=== PATIENT | female | born 1970 | race Caucasian/White ===

== ENCOUNTER 2017-11-17 14:22 | Emergency (ER) | payer OTHER, SELFPAY ==
--- NOTE | 2017-11-17 14:37 | EKG ---
Test Date: 2017-11-17 Test Time: 14:21:22 Log Brander: KAMI MEASUREMENT RESULTS: Intervals: Rate: 79 WA: 142 QRSD: 82 QT: 398 QTc: 456 [place]: P: 48 WA: 142 QRS: 19 T: 76 INTERPRETIVE STATEMENTS: Normal sinus rhythm Low voltage QRS Borderline ECG No previous ECG available for comparison Electronically Signed On 11-17-17 14:36:50 CDT by Alonso Hebert
[2017-11-17] MEDS ORDERED: HYDROCODONE/APAP 10/325 TAB ONE (14:43)
--- NOTE | 2017-11-17 15:34 | EDPHYS ---
Physician Documentation [facility] Name: Bailey Melchor Age: 47 yrs Sex: Female : 1970 Arrival Date: 11/17/2017 Time: 14:23 Bed 19 Private MD: ED Physician Gualberto Candelario HPI: 11/17 15:30 This 47 yrs old Female presents to ER via EMS with complaints of Chest Pain > rn 28 y/o, Jaw Pain. 15:30 This 47 yrs old Female presents to ER via EMS with complaints of Jaw Pain. rn 15:30 The patient or guardian reports injury, pain. The complaints affect the chin and right rn jaw. Onset: The symptoms/episode began/occurred 1 week(s) ago. Severity of symptoms: At their worst the symptoms were moderate, in the emergency department the symptoms are unchanged. The patient has not experienced similar symptoms in the past. Reports fell 1 week ago, has broken jaw and cracked tooth, states has seen dentist, referred to oral surgeon, states ibuprofen not helping. Reports palpitations from pain in jaw/tooth, but no chest pain/sob. . MANAGER TRAINEE: 14:26 LMP N/A - Irregular menses sg Historical: - Allergies: 14:27 NKA; sg - PMHx: 14:27 Hypertension; sg - PSHx: 14:27 None; sg - Immunization history:: Adult Immunizations not up to date. - Social history:: Smoking status: Patient/guardian denies using tobacco, Patient uses alcohol, occasionally. - Ebola Screening: : Patient negative for fever greater than or equal to 101.5 degrees Fahrenheit, and additional compatible Ebola Virus Disease symptoms Patient denies exposure to infectious person Patient denies travel to an Ebola-affected area in the 21 days before illness onset No symptoms or risks identified at this time. - Family history:: not pertinent. - Hospitalizations: : No recent hospitalization is reported. ROS: 15:30 Constitutional: Negative for fever, chills, and weight loss, Eyes: Negative for injury, rn pain, redness, and discharge, ENT: + jaw and tooth injury/pain Cardiovascular: Negative for chest pain, and edema, Respiratory: Negative for shortness of breath, cough, wheezing, and pleuritic chest pain, Abdomen/GI: Negative for abdominal pain, nausea, vomiting, diarrhea, and constipation, MS/Extremity: Negative for injury and deformity, Neuro: Negative for headache, weakness, numbness, tingling, and seizure. Exam: 15:30 Constitutional: This is a well developed, well nourished patient who is awake, alert, rn and in no acute distress. Head/Face: Normocephalic, bruising and tenderness inferior to chin ENT: + right angle of jaw tenderness without deformity or ecchymosis, + last molar on right uper jaw with partial crack, no active bleeding, no sign of infection 15:30 Eyes: Pupils equal round and reactive to light, extra-ocular motions intact. Lids and rn lashes normal. Conjunctiva and sclera are non-icteric and not injected. Cornea within normal limits. Periorbital areas with no swelling, redness, or edema. Neck: Trachea midline, no thyromegaly or masses palpated, and no cervical lymphadenopathy. Supple, full range of motion without nuchal rigidity, or vertebral point tenderness. No Meningismus. Cardiovascular: Regular rate and rhythm with a normal S1 and S2. No gallops, murmurs, or rubs. Normal PMI, no JVD. No pulse deficits. Respiratory: Lungs have equal breath sounds bilaterally, clear to auscultation and percussion. No rales, rhonchi or wheezes noted. No increased work of breathing, no retractions or nasal flaring. Vital Signs: 14:26 BP 108 / 76; Pulse 81 MON; Resp 16; Temp 97.6; Pulse Ox 98% on R/A; Pain 7/10; sg [place] Coma Score: 15:30 Eye Response: spontaneous(4). Verbal Response: oriented(5). Motor Response: obeys rn commands(6). Total: 15. 15:30 Eye Response: spontaneous(4). Verbal Response: oriented(5). Motor Response: obeys rn commands(6). Total: 15. MDM: 14:24 Patient medically screened. rn 15:30 Differential diagnosis: Contusion of face, chin. Data reviewed: vital signs, nurses rn notes, and as a result, I will discharge patient. Counseling: I had a detailed discussion with the patient and/or guardian regarding: the historical points, exam findings, and any diagnostic results supporting the discharge/admit diagnosis, the need for outpatient follow up, to return to the emergency department if symptoms worsen or persist or if there are any questions or concerns that arise at home. Response to treatment: the patient's symptoms have mildly improved after treatment, and as a result, I will discharge patient. Special discussion: I discussed with the patient/guardian in detail that at this point there is no indication for admission to the hospital. It is understood, however, that if the symptoms persist or worsen the patient needs to return immediately for re-evaluation. Based on the history and exam findings, there is no indication for further emergent testing or inpatient evaluation. I discussed with the patient/guardian the need to see the oral maxillofacial surgeon for further evaluation of the symptoms. ED course: Pt states here for pain control as ibuprofen not helping, has appt with oral surgery, return precautions given and understood.. 11/17 14:28 Order name: EKG; Complete Time: 14:29 sg 11/17 14:28 Order name: EKG - Nurse/Tech; Complete Time: 14:29 sg Administered Medications: 14:43 Drug: [place] 10 mg-325 mg 1 tabs Route: PO; sg Disposition: 11/17/17 15:34 Discharged to Home. Impression: Fracture of tooth (traumatic). - Condition is Stable. - Discharge Instructions: Tooth Fracture. - Prescriptions for Amoxicillin 875 mg Oral Tablet - take 1 tablet by ORAL route every 12 hours for 10 days; 20 tablet. Ultram 50 mg Oral Tablet - take 1 tablet by ORAL route every 6 hours As needed; 15 tablet. - Medication Reconciliation Form, Thank You Letter, Antibiotic Education, Prescription Opioid Use form. - Follow up: Private Physician; When: As needed; Reason: Recheck today's complaints, Re-evaluation by your physician. - Problem is an ongoing problem. - Symptoms have improved. Signatures: Bryan uEceda RN RN Gualberto Candelario MD MD rn Smirch, Shelby, RN RN ss Corrections: (The following items were deleted from the chart) 17:09 15:34 11/17/2017 15:34 Discharged to Home. Impression: Fracture of tooth (traumatic). ss Condition is Stable. Forms are Medication Reconciliation Form, Thank You Letter, Antibiotic Education, Prescription Opioid Use. Follow up: Private Physician; When: As needed; Reason: Recheck today's complaints, Re-evaluation by your physician. Problem is an ongoing problem. Symptoms have improved. rn
--- NOTE | 2017-11-17 15:34 | ER ---
Nurse's Notes [facility] Name: Bailey Melchor Age: 47 yrs Sex: Female : 1970 Arrival Date: 11/17/2017 Time: 14:23 Bed 19 Private MD: Diagnosis: Fracture of tooth (traumatic) Presentation: 11/17 14:24 Presenting complaint: EMS states: pt reports fell Thursday and broke her jaw, was seen sg by the dentist who told her there was nothing they could do. Todays complaint is chest pain a 7/10, non radiating, reports having drank vodka today to help control the pain. Transition of care: patient was not received from another setting of care. Onset of symptoms was November 17, 2017. Risk Assessment: Do you want to hurt yourself or someone else? Patient reports no desire to harm self or others. Initial Sepsis Screen: Does the patient meet any 2 criteria? No. Patient's initial sepsis screen is negative. Does the patient have a suspected source of infection? No. Patient's initial sepsis screen is negative. Care prior to arrival: None. 14:24 Method Of Arrival: EMS: [facility] sg 14:24 Acuity: CIRO 3 sg COMPLIANCE TESTER: 14:26 LMP N/A - Irregular menses sg Historical: - Allergies: 14:27 NKA; sg - PMHx: 14:27 Hypertension; sg - PSHx: 14:27 None; sg - Immunization history:: Adult Immunizations not up to date. - Social history:: Smoking status: Patient/guardian denies using tobacco, Patient uses alcohol, occasionally. - Ebola Screening: : Patient negative for fever greater than or equal to 101.5 degrees Fahrenheit, and additional compatible Ebola Virus Disease symptoms Patient denies exposure to infectious person Patient denies travel to an Ebola-affected area in the 21 days before illness onset No symptoms or risks identified at this time. - Family history:: not pertinent. - Hospitalizations: : No recent hospitalization is reported. Assessment: 15:55 Reassessment: pt requesting we notify a luis alberto for transport to home, pt reports "its ss gonna be a while before he gets here because he works at the plants and he has to go home and shower and everything." A call has been made to Luis Alberto [phone], a voicemail was left requesting a call back no other information was disclosed, pt notify awaiting a call back. Vital Signs: 14:26 BP 108 / 76; Pulse 81 MON; Resp 16; Temp 97.6; Pulse Ox 98% on R/A; Pain 7/10; sg [place] Coma Score: 15:30 Eye Response: spontaneous(4). Verbal Response: oriented(5). Motor Response: obeys rn commands(6). Total: 15. 15:30 Eye Response: spontaneous(4). Verbal Response: oriented(5). Motor Response: obeys rn commands(6). Total: 15. ED Course: 14:23 Patient arrived in ED. sg 14:24 Gualberto Candelario MD is Attending Physician. rn 14:25 Triage completed. sg 14:25 Arm band placed on. sg 14:28 Bryan Euceda, RN is Primary Nurse. sg 14:30 EKG done, by tool rental technician. reviewed by Gualberto Candelario MD. at1 Administered Medications: 14:43 Drug: [place] 10 mg-325 mg 1 tabs Route: PO; sg Outcome: 15:34 Discharge ordered by . rn 17:09 Patient left the ED. Signatures: Bryan Euceda, RN NBA Gualberto Candelario MD MD rn Smirch, Shelby, RN RN ss gonzales, Amanda, drill hand EKG Tat1
[2017-11-17 17:28] VITALS: BP 108/76; TEMP 97.6; O2SAT 98
== END 2017-11-17 17:09 | disposition home or self-care (01) ==
LOC: ER 14:22
DX: S02.5XXA Fracture of tooth (traumatic), initial encounter for closed fracture (principal); R07.9 Chest pain, unspecified; I10 Essential (primary) hypertension; W19.XXXA Unspecified fall, initial encounter; Y93.9 Activity, unspecified; Y92.9 Unspecified place or not applicable; Y99.9 Unspecified external cause status
CPT/HCPCS: 93005; 99283

== ENCOUNTER 2019-01-17 15:10 | Emergency (ER) | payer SELFPAY ==
--- NOTE | 2019-01-17 15:44 | ER ---
Nurse's Notes [facility] Name: Bailey Melchor Age: 48 yrs Sex: Female : 1970 Arrival Date: 01/17/2019 Time: 15:11 Bed Waiting Private MD: Diagnosis: Presentation: 01/17 15:17 Presenting complaint: Patient states: my R rib area was hurting for a month ang a half hj now, i wrapped it with andrés wrap for 20 hours and slept on it and now the pain is worse; reports SOB;. Transition of care: patient was not received from another setting of care. Onset of symptoms was January 17, 2019. Risk Assessment: Do you want to hurt yourself or someone else? Patient reports no desire to harm self or others. Initial Sepsis Screen: Does the patient meet any 2 criteria? No. Patient's initial sepsis screen is negative. Does the patient have a suspected source of infection? No. Patient's initial sepsis screen is negative. Care prior to arrival: None. 15:17 Method Of Arrival: Ambulatory 15:17 Acuity: CIRO 3 Historical: - Allergies: 15:18 NKA; - PMHx: 15:18 Hypertension; hj - PSHx: 15:18 None; hj Vital Signs: 15:18 BP 137 / 90; Pulse 90; Resp 18; Temp 97.8(O); Pulse Ox 100% on R/A; Weight 58.97 kg; hj Height 5 ft. 2 in. (157.48 cm); Pain 10/10; 15:18 Body Mass Index 23.78 (58.97 kg, 157.48 cm) ED Course: 15:11 Patient arrived in ED. rg4 15:18 Triage completed. 15:18 Arm band placed on left wrist. Administered Medications: No medications were administered Outcome: 15:43 Patient left the ED. Signatures: Mesfin Granda RN RN Kamala Pro rg4 Corrections: (The following items were deleted from the chart) 15:23 15:18 Pulse 90bpm; Resp 18bpm; Pulse Ox 100% RA; Temp 97.8F Oral; 58.97 kg; Height 5 hj ft. 2 in.; BMI: 23.7; Pain 10/10; hj
[2019-01-17 20:59] VITALS: BP 137/90; TEMP 97.8; O2SAT 100
== END 2019-01-17 15:43 | disposition left against medical advice (07) ==
LOC: ER 15:10
DX: R07.81 Pleurodynia (principal); Z53.21 Procedure and treatment not carried out due to patient leaving prior to being seen by health care provider
CPT/HCPCS: 99281

== ENCOUNTER 2020-01-08 05:00 | Emergency (ER) | payer SELFPAY ==
[2020-01-08] MEDS ORDERED: ALBUTEROL INHALER 60 PUFF/8 GM IH ONE (05:21)
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
[2020-01-08 06:15] VITALS: TEMP 98.2
[2020-01-08 06:17] VITALS: BP 129/90; O2SAT 95
--- NOTE | 2020-01-08 08:25 | RAD REPORT ---
EXAM DESCRIPTION: Meena Single View01/08/2020 5:58 am CLINICAL HISTORY: Chest pain COMPARISON: 2016 FINDINGS: The lungs appear clear of acute infiltrate. The heart is normal size IMPRESSION: No acute abnormalities displayed
--- NOTE | 2020-01-08 09:07 | RAD REPORT ---
EXAM DESCRIPTION: RAD - Wrist Left 3 View - 01/08/2020 5:58 am CLINICAL HISTORY: Left wrist pain FINDINGS: No fracture or dislocation is seen. The bones appear osteoporotic
== END 2020-01-08 06:10 | disposition home or self-care (01) ==
LOC: ER 05:00
DX: S60.212A Contusion of left wrist, initial encounter (principal); S20.222A Contusion of left back wall of thorax, initial encounter; J45.21 Mild intermittent asthma with (acute) exacerbation; I10 Essential (primary) hypertension; X58.XXXA Exposure to other specified factors, initial encounter; Y93.89 Activity, other specified; Y92.89 Other specified places as the place of occurrence of the external cause; F17.210 Nicotine dependence, cigarettes, uncomplicated
CPT/HCPCS: 71045; 99284